=== PATIENT | female | born 1970 | race Caucasian/White ===

== ENCOUNTER 2023-12-20 06:48 | Emergency (ER) | payer MEDICARE ==
[~2023-12-20] VITALS: Ht 152.4 cm; Wt 83.2 kg
[2023-12-20 08:11] LABS: BASO % 0.2 % (0.0-1.0); EOS % 0.2 % (0.0-3.0); HEMATOCRIT 48.9 % (36.0-47.0); LYMPH # 1.4 10^3/uL (1.5-5.0); MEAN CORPUSCULAR HEMOGLOBIN 30.4 pg (27.0-33.0); MEAN CORPUSCULAR HGB CONC 32.7 g/dl (32.0-36.5); MONO # 0.9 10^3/uL (0.0-0.8); NEUTROPHILS % 81.2 % (36.0-66.0); PLATELET COUNT, AUTOMATED 303 10^3/uL (150-450); RED BLOOD COUNT 5.26 10^6/uL (4.00-5.40); WHITE BLOOD COUNT 12.3 10^3/uL (4.0-10.0)
[2023-12-20 08:35] LABS: LIPASE 39 U/L (12-53)
[2023-12-20 08:37] LABS: ALKALINE PHOSPHATASE 82 U/L (46-116); ALT/SGPT 32 U/L (7.0-40); AST/SGOT 21 U/L (<34); BILIRUBIN,DIRECT 0.1 MG/DL (<0.4); BILIRUBIN,TOTAL 0.5 MG/DL (0.3-1.2); BLOOD UREA NITROGEN 14 MG/DL (9-23); CALCIUM LEVEL 9.4 MG/DL (8.5-10.1); CARBON DIOXIDE LEVEL 29 MMOL/L (20-31); CHLORIDE LEVEL 107 MMOL/L (98-107); CREATININE FOR GFR 0.66 MG/DL (0.55-1.30); GLOMERULAR FILTRATION RATE > 60.0 (>51); GLUCOSE, FASTING 107 MG/DL (60-100); POTASSIUM SERUM 3.7 MMOL/L (3.5-5.1); SODIUM LEVEL 143 MMOL/L (136-145); TOTAL PROTEIN 7.2 G/DL (5.7-8.2)
[2023-12-20] MEDS ORDERED: SERT25TA85 PO (09:47)
[2023-12-20] MEDS ORDERED: NORV5TAB PO (09:47)
[2023-12-20] MEDS ORDERED: ISOVUE-370 76% 100ML VIAL As Ordered ONE (10:17)
[2023-12-20 10:26] LABS: CK-MB VALUE MASS < 1.0 NG/ML (<3.6); CPK CREATINE PHOSPHOKINASE 223 U/L (34-145); MB/CK RELATIVE INDEX 0.44 (< OR =4)
[2023-12-20] MEDS: MAALOX 30 ML SUSP *UDC PO ONE (10:43)
[2023-12-20] MEDS: NS 1,000 ML IV ONE (10:43)
[2023-12-20] MEDS: ONDANSETRON 4MG 2ML VIAL IV ONE (10:43)
[2023-12-20 10:49] LABS: INR 0.94; PARTIAL THROMBOPLASTIN TIME 24.5 SECONDS (24.8-34.2); PROTHROMBIN TIME 12.3 SECONDS (12.5-14.5)
[2023-12-20 11:06] LABS: CK-MB VALUE MASS < 1.0 NG/ML (<3.6)
[2023-12-20 11:13] LABS: CPK CREATINE PHOSPHOKINASE 225 U/L (34-145); MB/CK RELATIVE INDEX 0.44 (< OR =4)
[2023-12-20] MEDS: MORPHINE 4 MG/ML 1ML VIAL IV ONE (11:43)
[2023-12-20 12:07] VITALS: BP 161/72; TEMP 97.7; O2SAT 96
[2023-12-20] MEDS ORDERED: PROT1TAB2 PO (12:30)
[2023-12-20] MEDS ORDERED: ONDA4TAB6 PO (12:30)
== END 2023-12-20 12:41 | disposition home or self-care (01) ==
LOC: EDBD 06:48 → M ED 06:48
DX: K80.66 Calculus of gallbladder and bile duct with acute and chronic cholecystitis without obstruction (principal); N28.89 Other specified disorders of kidney and ureter; D35.02 Benign neoplasm of left adrenal gland; Z79.83 Long term (current) use of bisphosphonates; Z79.899 Other long term (current) drug therapy
CPT/HCPCS: 71275; 74174; 80048; 80076; 81001; 82550; 82553; 83690; 84484; 85025; 85610; 85730; 93005; 96361; 96374; 96375; 99284; J2405; Q9967